=== PATIENT | male | born 1965 | race Hispanic/Latino ===

== ENCOUNTER 2024-01-20 08:55 | Emergency (ER) | payer OTHER, BC ==
[~2024-01-20] VITALS: Ht 175.3 cm; Wt 84.3 kg
[2024-01-20] MEDS ORDERED: KETOROLAC TROMETHAMINE 30 MG/ML SDV IM ONE (09:25)
[2024-01-20 09:31] VITALS: BP 139/68
[2024-01-20 09:45] VITALS: BP 131/76
[2024-01-20 10:00] VITALS: BP 133/78
[2024-01-20 10:15] VITALS: BP 131/82
[2024-01-20 10:30] VITALS: BP 141/75
[2024-01-20] MEDS ORDERED: NAPROXEN500 MG PO (10:41)
[2024-01-20] MEDS ORDERED: METHOCARBAMOL500 MG PO (10:41)
[2024-01-20 10:45] VITALS: BP 131/70
== END 2024-01-20 10:55 | disposition home or self-care (01) | DRG 556 ==
LOC: ED 08:55
DX: M25.512 Pain in left shoulder (principal); E78.5 Hyperlipidemia, unspecified